=== PATIENT | male | born 2000 | race Two or more races ===

== ENCOUNTER 2020-06-19 21:26 | Emergency (ER) | payer MEDICAID ==
[~2020-06-19] VITALS: Ht 177.8 cm; Wt 90.7 kg
[2020-06-19 22:37] LABS: Basophils # (auto) 0 10 ^3/uL (0-0.2); Basophils % (auto) 0.4 % (0.0-2.0); Eosinophils # (auto) 0.1 10 ^3/uL (0-0.8); Eosinophils % (auto) 0.5 % (0.0-7.0); Hematocrit 45.4 % (41.0-53.0); Hemoglobin 15.5 g/dL (13.5-17.5); Lymphocytes # (auto) 3.4 10 ^3/uL (0.4-5.4); Lymphocytes % (auto) 29.1 % (10.0-50.0); Mean Corpuscular Hemoglobin 31.6 pg (28.0-32.0); Mean Corpuscular Hgb Conc. 34.2 g/dL (32.0-36.0); Mean Corpuscular Volume 92.4 fL (80.0-100.0); Monocytes # (auto) 0.7 10 ^3/uL (0-1.3); Monocytes % (auto) 5.6 % (0.0-12.0); Neutrophils # (auto) 7.5 10 ^3/uL (1.6-8.6); Neutrophils % (auto) 64.4 % (37.0-80.0); Platelet Count (auto) 291 10^3/uL (140-450); Red Blood Cells 4.91 10^6/uL (4.5-5.90); Red Cell Distribution Width 12.4 % (11.8-14.3); White Blood Cell 11.6 10^3/uL (4.4-10.8)
[2020-06-19 22:56] LABS: Albumin 4.1 g/dL (3.4-5.0); BUN/Creatinine Ratio 9.6; Calcium 8.4 mg/dL (8.5-10.1); Potassium 3.8 mmol/L (3.5-5.1)
[2020-06-19 22:58] LABS: Salicylate < 1.7 mg/dL (2.8-20.0)
[2020-06-19 22:59] LABS: Bilirubin, Total 0.5 mg/dL (0.2-1.0); Total Protein 7.7 g/dL (6.4-8.2)
[2020-06-19 23:02] LABS: Acetaminophen < 2.0 ug/mL (10-30)
[2020-06-20 01:25] LABS: Acetaminophen < 2.0 ug/mL (10-30); Salicylate < 1.7 mg/dL (2.8-20.0)
[2020-06-20 01:56] VITALS: BP 106/56
== END 2020-06-20 02:00 | disposition home or self-care (01) ==
LOC: ER 21:26 → EDBD 21:26 → ER 06-20 02:00
DX: T40.2X1A Poisoning by other opioids, accidental (unintentional), initial encounter (principal); J45.909 Unspecified asthma, uncomplicated; Y92.9 Unspecified place or not applicable
CPT/HCPCS: 36415; 80053; 80329; 85025; 93005